=== PATIENT | female | born 1940 | race Caucasian/White ===

== ENCOUNTER → 2016-07-07 | Day surgery (SDC) | payer MEDICARE, OTHER ==
[~2016-07-07] MED LIST: ACETAMINOPHEN PO; ANTIVERT PO; ANTIVERT12.5 MG PO; B-12500 MCG PO; CALCIUM 600 +1 EAC9 PO; CALCIUM 600 W/1 TAB PO; CARAFATE; FISH OIL 1,2001 CAP PO; FLONASE 0.05% N16 G1; FLONASE 0.05% N16 GM; NATURAL VITA400 UNI2 PO; NEXIUM 24HR20 M1 PO; NORVASC2.5 MG PO; PANTOPRAZOLE SO40 MG PO; VITAMIN E400 UNI2 PO; ZOLPIDEM TARTRAT5 MG PO
--- NOTE | ~2016-07-07 | OR ---
Unit #: [id number] #: [id number] Patient: KATHLEEN WETZEL [id number] [facility]. [place], [place] [address] [id number] O MR#: [id number] NAME: KATHLEEN WETZEL ROOM: Date of Procedure: 07/07/2016 Admission Date: 07/07/2016 Surgeon: Mendoza Hunt III, M.D. : 1940 Attending Physician: Mendoza Hunt III, M.D. Primary Care Physician: Dayna Fitzgerald Aprn PROCEDURE OPERATIVE NOTE PREOPERATIVE DIAGNOSIS Diarrhea, right lower quadrant pain, nausea, bloating and reflux. POSTOPERATIVE DIAGNOSIS Small to medium hiatal hernia, multiple gastric polyps and sigmoid diverticulosis. PROCEDURE PERFORMED Esophagogastroduodenoscopy with ALICE testing and snare polypectomy as well as colonoscopy to cecum with cold biopsy. ENDOSCOPIST Dr. Hunt [facility] [place]. SPECIMEN Antrum was sent for ALICE testing. Multiple gastric polyps were retrieved and the cecum was cold biopsied. COMPLICATIONS None apparent. INDICATIONS FOR PROCEDURE This is a 75-year-old lady who has multiple abdominal symptoms including diarrhea, some right lower quadrant pain, nausea, vomiting, reflux. She is here today for upper and lower endoscopy. DESCRIPTION OF PROCEDURE After consent was obtained, the patient was brought to the endoscopy suite, placed in the left lateral decubitus position. We titrated the above sedation and I passed an EGD scope easily into the esophagus under direct visualization. She had normal peristalsis, no evidence of any erosions or esophagitis. She did have a small to medium size hiatal hernia. I advanced the scope on to the stomach and she had multiple, benign-appearing, hyperplastic polyps of the stomach. She had a patent pylorus in the first and second portions. The duodenum appeared normal. I did take a biopsy of the antrum for ALICE testing. I also used the snare to resect multiple gastric polyps and these were sectioned and sent to pathology. The largest of the polyps are brought out through the end of the endoscope. Certainly not all of the polyps were removed because there Unit #: [id number] #: [id number] Patient: KATHLEEN WETZEL was probably 80 to 100 of them. She had had them biopsied previously and they were benign. The scope was straightened and then carefully withdrawn. I then performed a rectal exam an did not feel any masses. The scope was placed within the rectal vault, air was insufflated and she was described as having a tortuous colon on her prior scope. However, the scope actually went through fairly easily through the sigmoid colon. I advanced it all the way to the cecum without any difficulty. She had some questionable irritation of the cecum. Given her pain in the right lower quadrant, I did take a biopsy of that area. She, otherwise, had some mild to moderate sigmoid diverticulosis. There were no other polyps or masses seen. The scope was retroflexed within the rectum. No other masses were seen. The scope was then carefully withdrawn. The patient tolerated the procedure without any problems and returned to the recovery room in stable condition. I will have her call my office early next week for biopsy results. Dictated by... Mendoza Hunt III, M.D. VCL/yoly TD: 07/07/2016 08:26 JOB #: [id number] PROCEDURE OPERATIVE NOTE Page 1 of 1 X Mendoza Hunt III, MD PROCEDURE OPERATIVE NOTE
== END | disposition home or self-care (01) ==
LOC: COPS 05:45
DX: K52.9 Noninfective gastroenteritis and colitis, unspecified (principal); K31.7 Polyp of stomach and duodenum; K44.9 Diaphragmatic hernia without obstruction or gangrene; K57.30 Diverticulosis of large intestine without perforation or abscess without bleeding; K62.89 Other specified diseases of anus and rectum; K21.9 Gastro-esophageal reflux disease without esophagitis; E78.5 Hyperlipidemia, unspecified; M19.90 Unspecified osteoarthritis, unspecified site; I10 Essential (primary) hypertension; Z87.891 Personal history of nicotine dependence; Z88.2 Allergy status to sulfonamides; Z88.8 Allergy status to other drugs, medicaments and biological substances; Z88.1 Allergy status to other antibiotic agents; Z91.048 Other nonmedicinal substance allergy status; Z79.899 Other long term (current) drug therapy; Z95.0 Presence of cardiac pacemaker; Z90.49 Acquired absence of other specified parts of digestive tract; Z90.710 Acquired absence of both cervix and uterus
CPT/HCPCS: 87077; 88305; 88312